=== PATIENT | female | born 1955 | race Caucasian/White ===

== ENCOUNTER 2017-07-07 01:15 | Emergency (ER) | payer OTHER ==
[2017-07-07] MEDS ORDERED: ACETAMINOPHEN 325 MG TABLET PO ONE (01:45)
--- NOTE | 2017-07-07 01:47 | ER Document Report ---
ED Fall - General Chief Complaint: Fall Stated Complaint: FALL, FACIAL INJURY Time Seen by Provider: 07/07/17 01:25 Notes: Patient is a 62-year-old female presents emergency department with chief complaint of fall. at bedside states that she has recently been following The following with neurology at [facility] with a possible diagnosis of Lewy body dementia. States that she falls frequently at home. States they are unsure what happened this evening but that he heard his asking for him since he sleep in different rooms. States that she was having a bloody nose. She admits to headache bitemporal. Patient takes baby aspirin at home but denies any other anticoagulants. Tetanus not up-to-date TRAVEL OUTSIDE OF THE [place] IN LAST 30 DAYS: No - Related data Allergies/Adverse Reactions: Penicillins Allergy (Severe, Verified 12/10/12 18:43) Anaphylaxis Sulfa (Sulfonamide Antibiotics) Allergy (Mild, Verified 12/10/12 18:43) blurry vision contrast dye Allergy (Severe, Uncoded 12/10/12 18:43) hive, severe itching Past Medical History - Social History Smoking Status: Unknown if Ever Smoked Chew tobacco use (# tins/day): No Frequency of alcohol use: None Drug Abuse: None Family History: Reviewed & Not Pertinent Patient has suicidal ideation: No Patient has homicidal ideation: No - Past Medical History Cardiac Medical History: Denies: Hx Heart Attack, Hx Hypertension Pulmonary Medical History: Denies: Hx Asthma Neurological Medical History: Reports: Hx Migraine. Denies: Hx Cerebrovascular Accident, Hx Seizures Renal/ Medical History: Reports: Hx Kidney Stones. Denies: Hx Peritoneal Dialysis GI Medical History: Denies: Hx Hepatitis, Hx Hiatal Hernia, Hx Ulcer Infectious Medical History: Denies: Hx Hepatitis Past Surgical History: Denies: Hx Hysterectomy, Hx Mastectomy, Hx Open Heart Surgery, Hx Pacemaker - Immunizations Hx Diphtheria, Pertussis, Tetanus Vaccination: No Review of Systems - Review of Systems Constitutional: No symptoms reported EENT: See HPI Cardiovascular: No symptoms reported Respiratory: No symptoms reported Gastrointestinal: No symptoms reported Genitourinary: No symptoms reported Musculoskeletal: No symptoms reported Skin: No symptoms reported Neurological/Psychological: See HPI Physical Exam - Vital signs Vitals: Temp Pulse Resp BP Pulse Ox 97.8 F 71 18 155/81 H 98 07/07/17 01:22 07/07/17 01:22 07/07/17 01:22 07/07/17 01:22 07/07/17 01:22 - Notes Notes: PHYSICAL EXAMINATION: GENERAL: Well-appearing, well-nourished and in no acute distress. GCS 15 HEAD: Atraumatic, normocephalic. EYES: Pupils equal round and reactive to light, extraocular movements intact, sclera anicteric, conjunctiva are normal. ENT: Nose bruising, Nares patent, oropharynx clear without exudates. Moist mucous membranes. No hemanotympanum . Dried blood in nares. No dental fracture. dried blood in her mouth NECK: Normal range of motion, supple without lymphadenopathy. Trachea midline LUNGS: Breath sounds clear to auscultation bilaterally and equal. No wheezes rales or rhonchi. HEART: Regular rate and rhythm without murmurs. Pulses intact all throughout. ABDOMEN: Soft, nontender, nondistended abdomen. No guarding, no rebound. No masses appreciated. Musculoskeletal: Normal range of motion, no pitting or edema. No cyanosis. Hip non tender, stable. NEUROLOGICAL: Cranial nerves grossly intact. Normal speech, normal gait. Normal sensory, motor, and reflex exams. PSYCH: Normal mood, normal affect. SKIN: Warm, No active bleeding Course - Re-evaluation Re-evalutation: 07/07/17 03:51 patient is a 62-year-old female who is hemodynamically stable, no acute distress and afebrile. CT of the head and cervical spine without any evidence of acute injury. CT facial shows mildly displaced bilateral nasal bone fractures, nondisplaced fracture of the anterior nasal septum. Bleeding controlled with TXA soaked on Merocel sponge. Patient stable for discharge home with instruction to follow-up with ENT in the next 2-3 days. Patient given strict return precautions and stable for discharge home. - Vital Signs Vital signs: Temp Pulse Resp BP Pulse Ox 97.7 F 66 20 135/59 H 100 07/07/17 05:56 07/07/17 05:56 07/07/17 05:56 07/07/17 05:56 07/07/17 05:56 - Diagnostic Test Radiology reviewed: Image reviewed, Reports reviewed Discharge - Discharge Clinical Impression: Fall Qualifiers: Encounter type: initial encounter Qualified Code(s): W19.XXXA - Unspecified fall, initial encounter Nasal fracture Qualifiers: Encounter type: initial encounter Condition: Good Disposition: HOME, SELF-CARE Instructions: Fracture of the Nose ([facility]), Nasal Sprays and Drops ([facility]) Additional Instructions: Sinus Precautions AVOID -blowing your nose It is best to wipe away nasal secretions carefully. After 2 weeks, if you must blow your nose, blow gently through both sides at the same time. Do not pinch your nose; do not blow just one side at a time. -sneezing If you must sneeze, keep your mouth open and do not pinch your nose closed. -sucking Do not drink through a straw. Do not smoke. - blowing Do not play a wind instrument. Do not blow up balloons. -pushing or lifting Do not lift or push objects weighing more than 20 pounds. - bending over Keep your head above the level of your heart. Sleep with your head slightly raised. Prescriptions: Hydrocodone/Acetaminophen [[place] 5-325 mg Tablet] 1 tab PO Q6HP PRN #10 tablet PRN Reason: Cephalexin Monohydrate [Keflex 500 mg Capsule] 500 mg PO QID 7 Days capsule Oxymetazoline HCl [Afrin 0.05% Nasal [place] 15 ml Bottle] 1 spray NASL ASDIR PRN #1 bottle PRN Reason: Referrals: JERMAIN MORALES DO [ASSOCIATE] - Follow up tomorrow
[2017-07-07] MEDS ORDERED: OXYMETAZOLINE HCL 0.05% NASAL SPRAY 15 ML BOTTLE NASL ONE ×2 (01:54→03:55)
--- NOTE | 2017-07-07 02:54 | RADIOLOGY REPORT (SQ) ---
EXAM DESCRIPTION: CT HEAD WITHOUT CLINICAL HISTORY: Fall/injury. COMPARISON: 12/10/2012 TECHNIQUE: Axial CT of the head obtained from the skull apex to the skull base without contrast. FINDINGS: No acute intracranial hemorrhage identified. No mass, mass effect, shift of the midline, abnormal extra-axial fluid collection or CT evidence of acute ischemic change identified. The ventricular system and sulcal spaces are mildly enlarged compatible with mild cerebral atrophy. Scattered areas of hypodensity throughout the supratentorial white matter are nonspecific and may be related to chronic small vessel ischemic change. Fluid layering in the maxillary sinuses likely represents acute blood. Bilateral nasal bone fractures. Please see dedicated facial bone CT for further details. Visualized orbits and globes are unremarkable. Atherosclerotic calcification of the intracranial internal carotid arteries. DLP:1043.77 mGy-cm IMPRESSION: 1. No acute intracranial abnormality by CT criteria. This exam was performed according to our departmental dose-optimization program, which includes automated exposure control, adjustment of the mA and/or kV according to patient size and/or use of iterative reconstruction technique.
--- NOTE | 2017-07-07 02:56 | RADIOLOGY REPORT (SQ) ---
EXAM DESCRIPTION: CT CERVICAL SPINE WITHOUT CLINICAL HISTORY: fall COMPARISON: None available TECHNIQUE: Axial CT of the cervical spine obtained without contrast. FINDINGS: Straightening of the cervical lordosis is likely secondary to patient positioning. The atlantoaxial, atlantodental, and occipitoatlantal intervals are preserved. No fracture identified. Vertebral body height preserved. Prevertebral soft tissues are unremarkable. Mild loss of intervertebral disc height at C4/5 and C5/6 with endplate spondylosis and uncovertebral spurring. No significant osseous central canal nor neural foraminal narrowing. Osteopenia. Visualized skull base is intact. No fracture of the visualized facial bones. Visualized mastoid air cells and paranasal sinuses are well aerated. Visualized thyroid is unremarkable. No cervical lymphadenopathy. No pneumothorax in the visualized lung apices. DLP: 258.42 mGy-cm IMPRESSION: 1. No acute fracture or subluxation of the cervical spine. This exam was performed according to our departmental dose-optimization program, which includes automated exposure control, adjustment of the mA and/or kV according to patient size and/or use of iterative reconstruction technique.
--- NOTE | 2017-07-07 03:00 | RADIOLOGY REPORT (SQ) ---
EXAM DESCRIPTION: CT FACIAL AREA WITHOUT CLINICAL HISTORY: fall, bloody nose COMPARISON: None available TECHNIQUE: Axial CT of the facial bone obtained without contrast. Coronal and sagittal reformatted images available. DLP: 505.33 mGy-cm FINDINGS: Orbits: Orbital floors and ledesma are intact. Intraorbital contents: The globes are intact. Extraocular muscles are symmetric. No intraconal fat stranding. Nasal bones: Mildly displaced bilateral nasal bone fractures. Nondisplaced fracture of the anterior nasal septum. Maxilla: The maxillary hard palate is intact. Maxillary antral ledesma are intact. Sinuses: Fluid in the maxillary sinuses and ethmoid air cells likely represents traumatic hemorrhagic fluid. Zygomatic processes: Intact Pterygoid plates: Intact Mandible: Intact. No mandibular condylar dislocation. Skull base/cervical spine: Visualized portions of the skull base and cervical spine are intact. Visualized mastoid air cells are well aerated. Subcutaneous soft tissues: Contusion in the subcutaneous soft tissues of the nose. Neck soft tissues: No definite abnormality involving the nasopharynx, oropharynx, or hypopharynx. Fossa of Rosenmuller are clear. Parotid glands and submandibular glands are unremarkable. No cervical lymphadenopathy. IMPRESSION: 1. Mildly displaced bilateral nasal bone fractures. 2. Nondisplaced fracture of the anterior nasal septum. This exam was performed according to our departmental dose-optimization program, which includes automated exposure control, adjustment of the mA and/or kV according to patient size and/or use of iterative reconstruction technique.
[2017-07-07] MEDS ORDERED: HYDROCODONE/ACETAMINOPHEN 5-325 MG (6 TAB/ER DISP) PO PRN (03:56)
[2017-07-07] MEDS ORDERED: TRANEXAMIC ACID INJ/PF 1,000 MG/10 ML SDV IV ONE (04:21)
[2017-07-07 06:17] VITALS: BP 135/59
== END 2017-07-07 06:17 | disposition home or self-care (01) ==
LOC: ER 01:15
DX: S02.2XXA Fracture of nasal bones, initial encounter for closed fracture (principal); S09.93XA Unspecified injury of face, initial encounter; G31.83 Neurocognitive disorder with Lewy bodies; F02.80 Dementia in other diseases classified elsewhere, unspecified severity, without behavioral disturbance, psychotic disturbance, mood disturbance, and anxiety; R51 Headache; W19.XXXA Unspecified fall, initial encounter; Z91.81 History of falling; Z79.82 Long term (current) use of aspirin
CPT/HCPCS: 99284; 70450; 70486; 72125; J3490

== ENCOUNTER 2019-01-12 05:20 | Day surgery (SDC) | payer OTHER ==
[2019-01-09 11:58] LABS: HEMATOCRIT 35.4 % (36.0-47.0); HEMOGLOBIN 11.3 g/dL (12.0-15.5); MEAN CORPUSCULAR HEMOGLOBIN 25.4 pg (27.0-33.4); MEAN CORPUSCULAR VOLUME 80 fl (80-97); PLATELET COUNT 172 10^3/uL (150-450); RED BLOOD COUNT 4.45 10^6/uL (3.72-5.28); RED CELL DISTRIBUTION WIDTH 16.8 % (11.5-14.0); WHITE BLOOD COUNT 3.8 10^3/uL (4.0-10.5)
[2019-01-09 12:06] LABS: APPEARANCE,URINE CLOUDY; BILIRUBIN,URINE NEGATIVE (NEGATIVE); COLOR,URINE YELLOW; GLUCOSE, URINE NEGATIVE (NEGATIVE); KETONES,URINE NEGATIVE (NEGATIVE); LEUKOCYTE ESTERASE,URINE NEGATIVE (NEGATIVE); NITRITE,URINE NEGATIVE (NEGATIVE); PROTEIN,URINE NEGATIVE (NEGATIVE); URINE SPECIFIC GRAVITY 1.015; UROBILINOGEN,URINE NEGATIVE mg/dL (<2.0)
[2019-01-09 12:17] LABS: ALBUMIN 3.8 g/dL (3.5-5.0); ALKALINE PHOSPHATASE 102 U/L (38-126); ANION GAP 10 (5-19); ASPARTATE AMINO TRANSFERASE 52 U/L (14-36); BILIRUBIN,DIRECT 0.2 mg/dL (0.0-0.4); BILIRUBIN,TOTAL 0.4 mg/dL (0.2-1.3); BLOOD UREA NITROGEN 13 mg/dL (7-20); CALCIUM 9.6 mg/dL (8.4-10.2); CARBON DIOXIDE 29 mmol/L (22-30); CHLORIDE 104 mmol/L (98-107); GLUCOSE 110 mg/dL (75-110); TOTAL PROTEIN 7.6 g/dL (6.3-8.2)
--- NOTE | 2019-01-09 15:04 | RADIOLOGY REPORT (SQ) ---
EXAM DESCRIPTION: CHEST PA/LATERAL COMPLETED DATE/TIME: 01/09/2019 10:50 am REASON FOR STUDY: PRE-OP COMPARISON: 12/10/2012 EXAM PARAMETERS: NUMBER OF VIEWS: two views TECHNIQUE: Digital Frontal and Lateral radiographic views of the chest acquired. RADIATION DOSE: NA LIMITATIONS: none FINDINGS: LUNGS AND PLEURA: No opacities, masses or pneumothorax. No pleural effusion. MEDIASTINUM AND HILAR STRUCTURES: No masses or contour abnormalities. HEART AND VASCULAR STRUCTURES: Borderline heart size. No pulmonary edema. BONES: No acute findings. HARDWARE: None in the chest. OTHER: No other significant finding. IMPRESSION: Borderline heart size. No pulmonary edema. No acute pulmonary findings. TECHNICAL DOCUMENTATION: JOB ID: [id number] [employer]- All Rights Reserved Reading location - IP/workstation name: [email or web address]
--- NOTE | 2019-01-09 16:55 | EKG REPORT ---
SEVERITY:- NORMAL ECG - SINUS RHYTHM : Confirmed by: Juanita Day MD 09-Jan-2019 16:54:03
[~2019-01-12 05:20] MED LIST: CLINDAMYCIN 900 MG/D5W RTU 900 MG/50 ML RTUPB IV ONE; CLINDAMYCIN 900 MG/D5W RTU 900 MG/50 ML RTUPB IV PRN; GENTAMICIN SULFATE 120 MG in DEXTROSE 5%-WATER 100 ML IV PRN; LACTATED RINGERS 1000 ML IV PRN; LIDOCAINE 0.5% INJ-PF (5 MG/ML) 50 ML SDV SUBCUT PRN
[2019-01-12] MEDS ORDERED: HYDROMORPHONE HCL INJ/PF 2 MG/ML AMPULE ONE (07:05)
[2019-01-12] MEDS ORDERED: PROPOFOL INJ 200 MG/20 ML VIAL IV ONE (07:05)
[2019-01-12] MEDS ORDERED: FENTANYL CITRATE INJ/PF 250 MCG/5 ML AMPULE ONE (07:05)
[2019-01-12] MEDS ORDERED: MIDAZOLAM 2 MG/2 ML INJ ONE (07:05)
[2019-01-12] MEDS ORDERED: METHYLENE BLUE 50 MG/10 ML AMPULE ONE ×2 (07:08→09:38)
[2019-01-12] MEDS ORDERED: LIDOCAINE 1%/EPINEPHRINE INJ 20 ML VIAL ONE (07:09)
[2019-01-12] MEDS ORDERED: BUPIVACAINE HCL 0.5%-EPI 1:200000 INJ/PF 30 ML VIAL ONE (07:09)
[2019-01-12] MEDS ORDERED: LIDOCAINE 0.5% INJ-PF (5 MG/ML) 50 ML SDV ONE (07:22)
[2019-01-12] MEDS ORDERED: ESTROGENS,CONJUGATED 0.625 MG/1 GM 30 GM TUBE PV ONE (10:30)
[2019-01-12] MEDS ORDERED: MORPHINE SULFATE 10 MG/ML INJ IV PRN (10:46)
[2019-01-12] MEDS ORDERED: MEPERIDINE HCL/PF INJ 25 MG/1 ML DISP.SYRIN IV PRN (10:46)
[2019-01-12] MEDS ORDERED: PROMETHAZINE HCL INJ 25 MG/1 ML VIAL IV PRN ×2 (10:46)
[2019-01-12] MEDS ORDERED: DIPHENHYDRAMINE HCL 50 MG/ML VIAL IV PRN (10:46)
[2019-01-12] MEDS ORDERED: FENTANYL CITRATE INJ/PF 100 MCG/2 ML AMPUL IV PRN ×3 (10:46)
[2019-01-12] MEDS ORDERED: HYDROMORPHONE HCL INJ/PF 2 MG/ML AMPULE IV PRN (11:19)
[2019-01-12] MEDS ORDERED: OXYCODONE-ACETAMINOPHEN 5-325 MG TABLET PO PRN ×2 (11:19)
[2019-01-12] MEDS ORDERED: ACETAMINOPHEN 1,000 MG/100 ML RTUPB IV PRN (11:19)
[2019-01-12] MEDS ORDERED: SIMETHICONE 80 MG TAB.CHEW PO PRN (11:19)
--- NOTE | 2019-01-12 11:19 | Operative Report ---
Operative Report DATE OF SURGERY: 01/12/19 PREOPERATIVE DIAGNOSIS: 1. Uterine prolapse. 2. Cystocele. 3. Pelvic pain POSTOPERATIVE DIAGNOSIS: Same OPERATION: Laparoscopic assisted vaginal hysterectomy with bilateral salpingo- oophorectomy; anterior colporrhaphy; cystoscopy SURGEON: CAITLIN PEREZ 1ST [employer]IVERS[employer] LECTURER: VAIBHAV CARTAGENA ANESTHESIA: GA TISSUE REMOVED OR ALTERED: Uterus, bilateral fallopian tubes and ovaries; excess anterior vaginal mucosa COMPLICATIONS: None QUANTITATIVE BLOOD LOSS: 200 INTRAOPERATIVE FINDINGS: Uterus sounded 8 cm; uterine prolapse, grade 3 cystocele, mild rectocele PROCEDURE: The patient was taken to the operating room where general anesthesia was obtained. The patient was then prepped and placed in the dorsal supine position with lithotomy and prepped and draped in the usual fashion. A speculum was then placed in the patient's vagina and the cervix grasped with a single-tooth tenaculum at approximately the 12 o'clock position of the anterior lip of the cervix. The uterus sounded 8 cm. The medium V care device was then placed and suture placed at the 12 o'clock position as well in order to maintain positioned against the cervix during procedure. Singled-tooth tenaculum and speculum were then removed from the patient's cervix and vagina. Attention was then turned to the abdomen where a 5 mm umbilical skin incision was made in the trocar and laparoscope were inserted into the abdominal cavity. The abdomen was insufflated with carbon dioxide carbon dioxide approximately 4 L. Survey of the patient's abdomen and pelvis were performed with findings as noted above. At this time 5 mm skin incisions were made approximately 2 cm medial and 4 cm superior to the anterior iliac spine on both the left and the right and then the third and fourth trocar sites placed approximately 4 cm superior to these on both the left and the right. 5mm trochars placed at all of the sites. At this time the right cornua was grasped and the right fallopian tube and utero-ovarian ligament and round ligament movements were cauterized and transected in the usual fashion with the LigaSure device. The right and the left fallopian tubes and ovaries were then transected and placed in the posterior cul-de-sac for later retrieval. The remainder of the uterine vessels and anterior and posterior leaves of the broad ligament as well as cardinal and uterosacral ligaments were coagulated and transected in a serial fashion down to the level of the uterine artery. The uterine artery was then identified and cauterized and transected in the usual fashion with the LigaSure device. The anterior flap of the broad limiting ligament was then dissected to the midline establishing about bladder flap with a combination of blunt and sharp dissection. The J-hook cautery was used to help dissect the peritoneum to create the bladder flap. Dissection was made superiorly bilaterally to the level of the internal os of the cervix. Cautery was then used to make the anterior and posterior colpotomy, used over the V care device in the circumferential fashion. The uterus was then transected and removed on the vagina by the microwave radio technician sitting at the vaginal area. Dr. Cartagena assisted with the transection of the uterus, tubes and ovaries. After the specimen was passed off, she then left the room. A weighted speculum was then placed in the patient's vagina. The anterior and posterior vaginal mucosa was grasped with Allis clamps. A sponge stick was used to retrieve both of the tubes and ovaries. Attention was then turned to the closing the vaginal cuff. The peritoneum was then closed with 2.0 Vicryl. The angles were then closed in a figure of 8 stitches of 0 Vicryl and transfixed to the ipsilateral cardinal and uterosacral ligaments. The remainder of the vaginal cuff was then closed with 0 Vicryl in an interrupted fashion. Hemostasis was noted. Attention was then turned to the patient's cystocele. The vaginal mucosa was grasped with Allis clamps and a horizontal incision was made at the bottom of the cystocele after the vaginal mucosa was injected with approximately 20 mL's of lidocaine. The vaginal mucosa was dissected off of the cystocele and a midline incision was made. The anterior vaginal mucosa was dissected all the way up to the top of the cystocele. 2-0 Vicryl was then used to reduce the cystocele in a pursestring manner. 2-0 Vicryl, interrupted sutures were used to repair the cystocele. The excess vaginal mucosa was trimmed. The incision was then closed with 2-0 Vicryl in a running, locked fashion. Hemostasis was noted. Immediately after the cystocele was repaired, methylene blue was given. The cystoscope was then primed and placed into the patient's urethra after the Caicedo catheter was removed. Methylene blue could be seen jetting from her right and left ureteral orifices. The cystoscope was then removed. Caicedo catheter then was replaced at Attention was then returned to the patient's abdomen where the CO2 gas was then turned back on. Evaluation of the vaginal cuff showed hemostasis. The abdomen was copiously irrigated with warm normal saline. Pictures were taken before and after completion of the hysterectomy. All 3 abdominal port sites with 4-0 Vicryl and Dermabond was placed over the incisions. The incisions were then injected with bupivacaine. Patient tolerated the procedure well. Sponge lap needle and instrument counts were correct x2. Patient was given 2 g of Ancef prior to the start of the procedure. The patient was taken to the recovery room in stable condition. Dr. Cartagena's assistance was vital in performing the surgery in timely fashion
[2019-01-12] MEDS ORDERED: ONDANSETRON HCL INJ/PF 4 MG/2 ML SDV ONE (14:05)
[2019-01-12] MEDS ORDERED: ROCURONIUM BROMIDE INJ 50 MG/5 ML VIAL IV ONE (14:05)
[2019-01-12] MEDS ORDERED: DEXAMETHASONE SOD PHOSPHATE INJ 4 MG/1 ML VIAL ONE (14:05)
[2019-01-12] MEDS ORDERED: GLYCOPYRROLATE 1 MG/5 ML VIAL ONE (14:05)
[2019-01-12] MEDS ORDERED: NEOSTIGMINE METHYLSULFATE 10 MG/10 ML VIAL ONE (14:05)
[2019-01-12] MEDS: KETOROLAC TROMETHAMINE INJ/PF 30 MG/1 ML SDV IV SCH ×2 (14:37→21:29)
[2019-01-12] MEDS ORDERED: ACETAMINOPHEN 325 MG TABLET PO PRN (16:00)
[2019-01-12] MEDS: DOCUSATE SODIUM 100 MG CAPSULE PO SCH (18:20)
[2019-01-12] MEDS ORDERED: INFLUENZA QUAD (6MOS+) 2019-20 VAC 0.5 ML SYR IM ONE (19:03)
[2019-01-12] MEDS: PROMETHAZINE HCL INJ 25 MG/1 ML VIAL IV PRN (19:47)
[2019-01-13] MEDS: KETOROLAC TROMETHAMINE INJ/PF 30 MG/1 ML SDV IV SCH (06:38)
[2019-01-13 06:55] LABS: HEMATOCRIT 28.9 % (36.0-47.0); HEMOGLOBIN 9.3 g/dL (12.0-15.5); MEAN CORPUSCULAR HEMOGLOBIN 25.5 pg (27.0-33.4); MEAN CORPUSCULAR HGB CONC 32.3 g/dL (32.0-36.0); MEAN CORPUSCULAR VOLUME 79 fl (80-97); PLATELET COUNT 134 10^3/uL (150-450); RED BLOOD COUNT 3.66 10^6/uL (3.72-5.28); RED CELL DISTRIBUTION WIDTH 16.6 % (11.5-14.0)
[2019-01-13] MEDS: DOCUSATE SODIUM 100 MG CAPSULE PO SCH (09:44)
[2019-01-13] MEDS: PROMETHAZINE HCL INJ 25 MG/1 ML VIAL IV PRN (09:44)
[2019-01-13] MEDS ORDERED: ROPINIROLE HCL 2 MG TABLET PO ONE (10:30)
[2019-01-13] MEDS ORDERED: IBUPROFEN 800 MG TABLET PO SCH (12:00)
--- NOTE | 2019-01-13 14:01 | PDOC DISCHARGE SUMMARY ---
Impression - Admit/DC Date/PCP Admission Date/Primary Care Provider: PATIRCIA ENVES Discharge Date: 01/13/19 - Discharge Diagnosis (1) Cystocele Is this a current diagnosis for this admission?: Yes (2) Pelvic pain in female Is this a current diagnosis for this admission?: Yes (3) Uterine prolapse Is this a current diagnosis for this admission?: Yes - Additional Information Resuscitation Status: Full Code Discharge Diet: Regular Discharge Activity: Balance Activity w/Rest, No Lifting Over 10 Pounds, Pelvic Rest, Slowly Increase Activity Referrals: CAITLIN HINOJOSA DO [ACTIVE STAFF] - 01/27/19 9:30 am (Please keep your scheduled follow up appointment with Dr Simon on 01/27/19 at 9:30. If you have any questions please call the office directly at .) Home Medications: Amlodipine Besylate [Norvasc 5 mg Tablet] 5 mg PO DAILY 01/12/19 Clonazepam [Klonopin] 0.5 mg PO QHS 01/12/19 Cyclobenzaprine HCl [Flexeril 10 mg Tablet] 10 mg PO Q8 01/12/19 Donepezil HCl [Aricept] 10 mg PO DAILY 01/12/19 Gabapentin [Neurontin] 600 mg PO DAILY 01/12/19 Hydrocodone/Acetaminophen [[place] 10-325 mg Tablet] 1 tab PO Q8HP PRN 01/12/19 Melatonin 10 mg PO QHS 01/12/19 Ropinirole HCl [Requip 2 Mg Tablet] 2 mg PO Q12 01/12/19 Venlafaxine HCl [Effexor Xr] 150 mg PO DAILY 01/12/19 History of Present Illiness History of Present Illness: RACIEL CARTAGENA is a 63 year old G2, P2, who presented to the office complaining of feeling like something was falling out of her vagina. She tried Premarin vaginal cream for several months. She did have some improvement at first and then stated that she started to have pelvic pain and difficulty evacuating fully. She stated that she was then ready for surgery. Hospital Course Hospital Course: Hospital course was essentially uneventful by postop day #1 patient was ambulating and voiding without difficulty. Her vaginal packing was removed which showed only old blood. She is tolerating a regular diet. She is passing gas. Has no complaints of vaginal bleeding. Physical Exam - Physical Exam Vital Signs: Temp Pulse Resp BP Pulse Ox 98.0 F 72 18 104/66 98 01/13/19 11:39 01/13/19 11:39 01/13/19 11:39 01/13/19 11:39 01/13/19 11:39 Intake & Output 01/12/19 01/13/19 01/14/19 06:59 06:59 06:59 Intake Total 0 5400 Output Total 5050 600 Balance 0 350 -600 Weight 65.77 kg General appearance: PRESENT: no acute distress Respiratory exam: PRESENT: clear to auscultation sveta Cardiovascular exam: PRESENT: RRR GI/Abdominal exam: PRESENT: normal bowel sounds, soft Extremities exam: ABSENT: calf tenderness, clubbing, full ROM, joint swelling, pedal edema, tenderness, +1 edema, +2 edema, other - Gynecological Exam Vagina: normal, other - Vaginal packing removed which revealed old blood Results Laboratory Results: WBC 6.0 10^3/uL (4.0-10.5) 01/13/19 06:17 RBC 3.66 10^6/uL (3.72-5.28) L 01/13/19 06:17 Hgb 9.3 g/dL (12.0-15.5) L 01/13/19 06:17 Hct 28.9 % (36.0-47.0) L 01/13/19 06:17 MCV 79 fl (80-97) L 01/13/19 06:17 MCH 25.5 pg (27.0-33.4) L 01/13/19 06:17 MCHC 32.3 g/dL (32.0-36.0) 01/13/19 06:17 RDW 16.6 % (11.5-14.0) H 01/13/19 06:17 Plt Count 134 10^3/uL (150-450) L 01/13/19 06:17 Sodium 142.8 mmol/L (137-145) 01/09/19 11:10 Potassium 4.0 mmol/L (3.6-5.0) 01/09/19 11:10 Chloride 104 mmol/L (98-107) 01/09/19 11:10 Carbon Dioxide 29 mmol/L (22-30) 01/09/19 11:10 Anion Gap 10 (5-19) 10/21/19 11:10 BUN 13 mg/dL (7-20) 01/09/19 11:10 Creatinine 0.70 mg/dL (0.52-1.25) 01/09/19 11:10 Est GFR ( Amer) > 60 (>60) 01/09/19 11:10 Est GFR (MDRD) Non-Af > 60 (>60) 01/09/19 11:10 Glucose 110 mg/dL (75-110) 01/09/19 11:10 Calcium 9.6 mg/dL (8.4-10.2) 01/09/19 11:10 Total Bilirubin 0.4 mg/dL (0.2-1.3) 01/09/19 11:10 Direct Bilirubin 0.2 mg/dL (0.0-0.4) 01/09/19 11:10 Neonat Total Bilirubin Not Reportable 01/09/19 11:10 Neonat Direct Bilirubin Not Reportable 01/09/19 11:10 Neonat Indirect Bili Not Reportable 01/09/19 11:10 AST 52 U/L (14-36) H 01/09/19 11:10 ALT 38 U/L (<35) 01/09/19 11:10 Alkaline Phosphatase 102 U/L (38-126) 01/09/19 11:10 Total Protein 7.6 g/dL (6.3-8.2) 01/09/19 11:10 Albumin 3.8 g/dL (3.5-5.0) 01/09/19 11:10 Serum HCG, Qual NEGATIVE (NEGATIVE) 01/09/19 11:10 Urine Color YELLOW 01/09/19 11:15 Urine Appearance CLOUDY 01/09/19 11:15 Urine pH 5.0 (5.0-9.0) 01/09/19 11:15 Ur Specific [place] 1.015 01/09/19 11:15 Urine Protein NEGATIVE mg/dL (NEGATIVE) 01/09/19 11:15 Urine Glucose (UA) NEGATIVE mg/dL (NEGATIVE) 01/09/19 11:15 Urine Ketones NEGATIVE mg/dL (NEGATIVE) 01/09/19 11:15 Urine Blood NEGATIVE (NEGATIVE) 01/09/19 11:15 Urine Nitrite NEGATIVE (NEGATIVE) 01/09/19 11:15 Urine Bilirubin NEGATIVE (NEGATIVE) 01/09/19 11:15 Urine Urobilinogen NEGATIVE mg/dL (<2.0) 01/09/19 11:15 Ur Leukocyte Esterase NEGATIVE (NEGATIVE) 01/09/19 11:15 Urine WBC (Auto) 30 /HPF 01/09/19 11:15 Urine RBC (Auto) 31 /HPF 01/09/19 11:15 Urine Bacteria (Auto) 1+ /HPF 01/09/19 11:15 Squamous Epi Cells Auto 24 /HPF 01/09/19 11:15 Urine Mucus (Auto) OCC /LPF 01/09/19 11:15 Urine Yeast (Budding) PRESENT /HPF 01/09/19 11:15 Urine Ascorbic Acid NEGATIVE (NEGATIVE) 01/09/19 11:15 Blood Type A POSITIVE 01/09/19 11:10 Antibody Screen NEGATIVE 01/09/19 11:10 Impressions: Chest X-Ray 01/09/19 10:45 IMPRESSION: Borderline heart size. No pulmonary edema. No acute pulmonary findings. Plan Plan of Treatment: 1. Discharge home today 2. Prescriptions given for Colace, [place] and ibuprofen Time Spent: Greater than 30 Minutes Stroke Is this a Stroke Patient?: No Acute Heart Failure - Is this a Heart Failure Patient?: No
[2019-01-13 15:12] VITALS: BP 146/73
== END 2019-01-13 15:55 | disposition home or self-care (01) ==
LOC: OROUT 05:20 → 2N 13:15 → OROUT 01-13 15:55
PROVIDERS: ATTEND Obstetrics & Gynecology
DX: N81.3 Complete uterovaginal prolapse (principal); N95.2 Postmenopausal atrophic vaginitis; N84.1 Polyp of cervix uteri; N83.8 Other noninflammatory disorders of ovary, fallopian tube and broad ligament
CPT/HCPCS: 93005; 86900; 86901; 36415 ×2; 86850; 84703; 85027 ×2; 80053; 81001; 88307 ×2; 71046; 90686; 93010; 00944; 58552; 57240; J2250; J3490 ×7; J1100; J3010; J1580; J1885 ×2; J2710; J1170 ×2; J2550 ×2; J2405; J7060; J2704; Q9968; 944

== ENCOUNTER 2020-04-09 06:35 | Day surgery (SDC) | payer OTHER ==
[~2020-04-09 06:35] MED LIST changes: +BUPIVACAINE HCL 0.75% INJ/PF (7.5 MG/1 ML) 10 ML SDV OD PRN; -CLINDAMYCIN 900 MG/D5W RTU 900 MG/50 ML RTUPB IV ONE; -CLINDAMYCIN 900 MG/D5W RTU 900 MG/50 ML RTUPB IV PRN; -GENTAMICIN SULFATE 120 MG in DEXTROSE 5%-WATER 100 ML IV PRN; +KETOROLAC TROMETHAMINE 0.45% 4 DROP/0.4 ML DROPERETTE OD PRN; -LACTATED RINGERS 1000 ML IV PRN; -LIDOCAINE 0.5% INJ-PF (5 MG/ML) 50 ML SDV SUBCUT PRN; +LIDOCAINE 4% INJ/PF (40 MG/ML) 5 ML AMPUL OD PRN
[2020-04-09] MEDS ORDERED: EPINEPHRINE INJ/PF 1 MG/1 ML AMPULE ONE (06:50)
[2020-04-09] MEDS ORDERED: LIDOCAINE 1% INJ-PF (10 MG/ML) 30 ML SDV ONE (06:50)
[2020-04-09] MEDS ORDERED: CHONDR SU A NA/HYALUR INTRAOC KIT (SURGICARE) ONE (06:50)
[2020-04-09] MEDS: TETRACAINE HCL 0.5% OPH SOLN 4 ML OD PRN ×2 (06:53→07:15)
[2020-04-09] MEDS: CYCLOPENTOLATE 0.2%/PHENYLEPHRINE 1% OPH SOLN 2 ML OD PRN ×3 (06:54→07:16)
[2020-04-09] MEDS: TROPICAMIDE 1% OPH SOLN 15 ML OD PRN ×3 (06:54→07:16)
[2020-04-09] MEDS: BESIFLOXACIN HCL 0.6% OPH SUSP 5 ML BOTTLE OD PRN ×4 (06:54→08:03)
[2020-04-09] MEDS ORDERED: FENTANYL CITRATE INJ/PF 100 MCG/2 ML AMPUL ONE (07:19)
[2020-04-09] MEDS ORDERED: MIDAZOLAM 2 MG/2 ML INJ ONE (07:19)
[2020-04-09] MEDS: DORZOLAMIDE HCL 2%/TIMOLOL MALEAT 0.5% OPH SOLN 10 ML OD PRN ×2 (08:03)
[2020-04-09] MEDS: PREDNISOLONE ACETATE 1% OPH SUSP 5 ML OD PRN ×2 (08:03)
--- NOTE | 2020-04-09 12:41 | Operative Report ---
Operative Report-[facility] Operative Report: DATE OF SURGERY: 04/09/2020 PREOPERATIVE DIAGNOSIS: CATARACT, RIGHT EYE. POSTOPERATIVE DIAGNOSIS: CATARACT, RIGHT EYE. PROCEDURE PERFORMED: PHACOEMULSIFICATION WITH POSTERIOR CHAMBER INTRAOCULAR LENS, RIGHT EYE. Intraocular Lens Model : DC bright 24.0 Total Phaco Time: 37 CDE SURGEON: ALBERT BAILEY MD ANESTHESIA: TOPICAL WITH MAC. INDICATIONS FOR SURGERY: Difficulty reading captions on TV. PROCEDURE: The patient was brought to the Operating Room and placed on the operative table. Following tetracaine drops, topical anesthesia was administered. This consisted of instrument wipe pledgets soaked in a solution of 4% Xylocaine mixed with 0.75% Marcaine in a 1:2 ratio. A 2 x 1 cm pledget was placed in the superior fornix. A 1 x 1 cm pledget was placed in the inferior fornix. The eye was patched shut for 5 minutes. The patch was removed. The eye was sterilely prepped and draped in the usual manner. Lid speculum was placed in the eye. The pledgets were removed. 4-0 black silk sutures were placed around the superior and the inferior rectus muscles to be used as traction. A conjunctival peritomy was made at the 10 o'clock position. Hemostasis was obtained with bipolar cautery. A posterior limbal groove was created using a crescent knife and dissected anteriorly towards the cornea. A sharp point blade was used to create a paracentesis site at the 2 o'clock position. 0.2 cc non preserved Lidocaine was injected into the anterior chamber. A 2.4 mm keratome was used to enter the anterior chamber through the groove. Viscoelastic was injected into the anterior chamber. An anterior capsulotomy was performed using Utrata forceps in a capsulorrhexis fashion. Hydrodissection and hydrodelineation were performed. Phacoemulsification was performed in [id number]-fzhyayi technique. Following this, the I/A unit was used to remove residual cortex. Viscoelastic was injected into the capsular bag. The Intraocular lens was placed in the capsular bag. The I/A unit was used to remove residual viscoelastic. The wound was seen to be watertight under high and low pressure, and no sutures were placed. The intraocular lens was well centered. The pressure was adjusted in the eye to normal pressure. The 4-0 black silk sutures and lid speculum were removed. The eye was shielded after Besivance. prednisolone, and Cosopt drops were placed. The patient tolerated the procedure well and was sent to the Recovery Room in good condition.
== END 2020-04-09 08:43 | disposition home or self-care (01) ==
LOC: SC 06:35
PROVIDERS: ATTEND Ophthalmology
DX: H25.11 Age-related nuclear cataract, right eye (principal); H04.123 Dry eye syndrome of bilateral lacrimal glands; H18.513 Endothelial corneal dystrophy, bilateral; Z87.891 Personal history of nicotine dependence; I10 Essential (primary) hypertension; D64.9 Anemia, unspecified; K21.9 Gastro-esophageal reflux disease without esophagitis; M19.90 Unspecified osteoarthritis, unspecified site; R51.9 Headache, unspecified
CPT/HCPCS: 66984; V2632; J2250; J3490 ×5; J0171; J3010